=== PATIENT | female | born 1985 | race Caucasian/White ===

== ENCOUNTER 2019-01-19 01:44 | Emergency (ER) | payer SELFPAY ==
[~2019-01-19] VITALS: Ht 162.6 cm; Wt 56.7 kg
--- NOTE | 2019-01-19 01:45 | NUR ---
PT bib to er w/ sob. PT STATES THAT SHE IS HAVING AN ASTHMATIC ATTACK. PATIENT IS GIVEN N/C 2L IMMEDIATELY UPON ARRIVAL. CURRENTLY NOT IN ANY DISTRESS. CONNECTED TO MONITOR.
[2019-01-19] MEDS ORDERED: methylPREDNISolone SOD SUCC 125 MG/2ML VIAL ONE (01:57)
[2019-01-19] MEDS ORDERED: ALBUTEROL FS 2.5 MG/0.5 ML VIAL.NEB ONE (01:59)
[2019-01-19] MEDS ORDERED: methylPREDNISolone SOD SUCC 125 MG/2ML VIAL IV ONE (02:00)
[2019-01-19] MEDS ORDERED: ALBUTEROL FS 2.5 MG/3 ML VIAL.NEB CONTNEB ONE (02:00)
--- NOTE | 2019-01-19 02:06 | NUR ---
RT AT BEDSIDE
--- NOTE | 2019-01-19 03:11 | NUR ---
XRAY AT BS
--- NOTE | 2019-01-19 03:20 | NUR ---
prescriptions given and explained to patient and her
--- NOTE | 2019-01-19 04:34 | NUR ---
IV removed. Catheter intact and site benign. Pressure and 4x4 applied to site. No bleeding noted.Patient discharged to home in stable condition. Written and verbal after care instructions given. Patient verbalizes understanding of instruction.
[2019-01-19 04:36] VITALS: BP 127/71
== END 2019-01-19 04:37 | disposition home or self-care (01) ==
LOC: ER 01:46
DX: J45.901 Unspecified asthma with (acute) exacerbation (principal); F32.9 Major depressive disorder, single episode, unspecified; Z98.890 Other specified postprocedural states
CPT/HCPCS: 71045; 94644; 96374; 99285; J2930

== ENCOUNTER 2019-02-02 02:16 | Emergency (ER) | payer MEDICAID ==
[~2019-02-02] VITALS: Ht 162.6 cm; Wt 56.7 kg
--- NOTE | 2019-02-02 02:25 | NUR ---
PT CAME IN W/ FOR C/O SOB. PT STATES THAT SHE USED A HUMIDIFIER, AND SAT IN THE BATH W/ HOT STEAM AND STILL HAD SHORTNESS OF BREATH BECAUSE OF THE COLD. AAOX4. NOT IN ANY DISTRESS. BREATHING EVENLY AND UNLABORED. CONNECTED TO MONITOR.
[2019-02-02] MEDS ORDERED: MAG HYDROX/AL HYDROX/SIMETH 30 ML UDC ONE (02:40)
[2019-02-02] MEDS ORDERED: LIDOCAINE VISCOUS 2% UD 15 ML UDC ONE (02:40)
[2019-02-02] MEDS ORDERED: LIDOCAINE VISCOUS 2% UD 15 ML UDC MM ONE (03:00)
[2019-02-02] MEDS ORDERED: MAG HYDROX/AL HYDROX/SIMETH 30 ML UDC PO ONE (03:00)
[2019-02-02] MEDS ORDERED: CHLORDIAZEPOXIDE HCL 25 MG CAPSULE ONE (03:09)
[2019-02-02] MEDS ORDERED: ONDANSETRON 4 MG TAB.RAPDIS ONE (03:09)
[2019-02-02 04:21] VITALS: BP 123/71
== END 2019-02-02 03:23 | disposition home or self-care (01) ==
LOC: ER 02:18
DX: K21.9 Gastro-esophageal reflux disease without esophagitis (principal); F41.9 Anxiety disorder, unspecified; J45.909 Unspecified asthma, uncomplicated; F32.9 Major depressive disorder, single episode, unspecified; Z98.86 Personal history of breast implant removal
CPT/HCPCS: Q0162